=== PATIENT | male | born 1995 | race Caucasian/White ===

== ENCOUNTER → 2017-07-15 | Outpatient (CLI) | payer BC ==
[~2017-07-15] MED LIST: E-Z-PAQUE 96% w/w SUSP 176GM BTL As Ordered
== END ==
LOC: M RAD 07:56
DX: R14.0 Abdominal distension (gaseous) (principal)
CPT/HCPCS: 74250

== ENCOUNTER 2017-07-23 13:10 | Day surgery (SDC) | payer BC ==
[2017-07-23] MEDS: NS 1,000 ML IV (13:29)
[2017-07-23] MEDS ORDERED: PROPOFOL 200 MG/20 ML VIAL As Ordered (13:57)
== END 2017-07-23 15:02 | disposition home or self-care (01) ==
LOC: M OPP 13:10
DX: K30 Functional dyspepsia (principal); R11.0 Nausea; R07.89 Other chest pain; K58.9 Irritable bowel syndrome, unspecified; K21.9 Gastro-esophageal reflux disease without esophagitis; R06.02 Shortness of breath; G43.909 Migraine, unspecified, not intractable, without status migrainosus; J45.909 Unspecified asthma, uncomplicated; F41.9 Anxiety disorder, unspecified; G47.8 Other sleep disorders; F17.210 Nicotine dependence, cigarettes, uncomplicated; F17.220 Nicotine dependence, chewing tobacco, uncomplicated; F12.20 Cannabis dependence, uncomplicated; Z88.0 Allergy status to penicillin; Z79.899 Other long term (current) drug therapy; Z80.51 Family history of malignant neoplasm of kidney
CPT/HCPCS: 43239